=== PATIENT | female | born 2000 | race Two or more races ===

== ENCOUNTER 2024-11-23 08:03 | Emergency (ER) | payer OTHER, SELFPAY ==
[2024-11-23 08:10] VITALS: BP 136/89; PULSE 79; RESP 18; TEMP 37.4; O2SAT 99; BMI 21.5
--- NOTE | 2024-11-23 08:29 | ED.BACK ---
HPI - Back Pain/Injury General Time Seen by Provider: 08:30 Date Seen: 11/23/24 Chief Complaint: Back Injury/Pain Stated Complaint: back pain Time Seen by Provider: 11/23/24 08:29 Source: patient and RN notes reviewed Mode of arrival: ambulatory Limitations: no limitations History of Present Illness HPI Narrative: Donnie is a very pleasant 24-year-old female currently visiting from [facility] who comes to the emergency room with low back pain and feet tingling after a fall yesterday. Patient is typically healthy. She notes rollerblading yesterday and while hanging on to somebody's hands suddenly slipped falling on to her buttocks and low back. She had immediate pain. Yesterday and overnight she tried to limit activity. She did try to use ice as well. Her concern was that she had tingling in both of her feet that occurred twice. It is not present at this time. She has increasing pain today especially low back with radiation into both buttocks. She has no pain in her legs at this time. She denies hitting her head or any other injury. No loss of bowel or bladder control or numbness of the perineal area. Patient notes normal. On October 24. She has been sexually active but always with protection. She notes that she her breasts are sore and feels like she will be getting her period soon. She usually gets her menses every 35-40 days. Related Data Home Medications ?Medication ?Instructions ?Recorded ?Confirmed No Known Home Medications 11/23/24 11/23/24 Allergies Allergy/AdvReac Type Severity Reaction Status Date / Time No Known Drug Allergies Allergy Verified 11/23/24 08:17 Review of Systems Status of ROS: Reports: 6 or more systems reviewed and unremarkable except as noted in History and below Eyes: Denies: change in vision ENMT: Denies: neck pain Cardio: Denies: swelling of feet/ankles or lightheadedness Musculo: Reports: back pain and other (Tingling of the bottoms of the feet); Denies: neck pain, extremity pain or joint swelling Neuro: Denies: headache PFSH PFSH Social History Smoking Status: Never smoker How often do you have a drink containing alcohol: never AUDIT-C Alcohol total score: 0 Non-prescribed substance use: denies use Exam Narrative: Exam Narrative: Patient is very pleasant well-spoken female in no acute distress. External ears eyes nose clear. Head is atraumatic. Heart with regular rate and rhythm lungs are clear. Palpation down lumbar spine shows tenderness at L4 and 5. No ecchymosis is noted. Examination of the lower extremity shows full strength and motor as well as sensation at the ankles and toes. DTR 2+ on the right and 1+ on the left. Const: Vital Signs, click to edit/add: Vital Signs - 24 hr 11/23/24 08:10 Temperature 99.3 F Pulse Rate [Right Pulse Oximeter] 79 Respiratory Rate 18 Blood Pressure [Ri ght Upper Arm] 136/89 Pulse Oximetry 99 Oxygen Delivery Me thod Room Air Documenting provider has reviewed patient's vital signs: yes Course Course ED Course: Differential diagnosis includes but is not limited to lumbar compression fracture, sacral fracture, radiculopathy, soft tissue injury. At this time I do suggest CT of the lumbar spine given patient's sensation of tingling in the feet that has now occurred twice. I do not think we would be able to adequately rule out a fracture with plain x-ray. I do not have the ability to do MRI today. Will also give patient 400 mg of ibuprofen while she is waiting. She is in agreement with this. Vital Signs Vital signs: Initial Vital Signs Temperature 99.3 F 11/23/24 08:10 Temperature Source Temporal Artery Scan 11/23/24 08:10 Pulse Rate 79 11/23/24 08:10 Pulse Rhythm Regular 11/23/24 08:10 Pulse Strength 3+ Normal 11/23/24 08:10 Respiratory Rate 18 11/23/24 08:10 Blood Pressure 136/89 11/23/24 08:10 Blood Pressure Mean 104 11/23/24 08:10 Blood Pressure Position Sitting 11/23/24 08:10 Pulse Oximetry 99 11/23/24 08:10 Oxygen Delivery Method Room Air 11/23/24 08:10 Vital Signs Temperature 99.3 F 11/23/24 08:10 Pulse Rate 79 11/23/24 08:10 Respiratory Rate 18 11/23/24 08:10 Blood Pressure 136/89 11/23/24 08:10 Pulse Oximetry 99 11/23/24 08:10 Oxygen Delivery Method Room Air 11/23/24 08:10 Temperature 99.3 F 11/23/24 08:10 Pulse Rate 79 11/23/24 08:10 Respiratory Rate 18 11/23/24 08:10 Blood Pressure 136/89 11/23/24 08:10 Pulse Oximetry 99 11/23/24 08:10 Oxygen Delivery Method Room Air 11/23/24 08:10 Medications Administered Medications: Discontinued Medications Generic Name Dose Route Start Last Admin Trade Name Finn PRN Reason Stop Dose Admin Ibuprofen 400 mg 11/23/24 08:39 11/23/24 08:46 Ibuprofen 200 Mg Tablet PO 11/23/24 08:40 400 mg ONCE ONE Administration MDM - Back Pain/Injury MDM Narrative Medical decision making narrative: 1. Low back pain-secondary to trauma with a fall. Fortunately no evidence of bony abnormality on CT. At this time I do not detect any focal neurological deficits. No lower extremity symptoms at this time, loss of bowel or bladder control or perineal numbness. Would recommend continuing icing of the low back. May alternate ibuprofen and Tylenol every 4 hours as needed for discomfort. Recommend light activity and prolonged periods of lying in bed. If symptoms worsen especially lower extremity symptoms recommend returning to the ER for further evaluation, MRI for determination of disc and nerve root integrity. 2. Disposition-home at this time. Return for worsening symptoms and as needed. Prior to discharge patient did have a question regarding at Medicaid. She is visiting and is on a visitors to be set. She does not have insurance. Would recommend calling the phone number listed as I am unable to answer her question regarding Medicaid eligibility. She does agree with this. Lab Data Attestation: I reviewed the patient's lab results. Labs: Lab Results 11/23/24 Range/Units 08:50 Urine HCG, Qual Negative (Negative) Imaging Data CT scan - pelvis: Attestation: I have reviewed the pertinent imaging results. My impression: I do not note any acute fractures. Radiologist's impression: Bones: Alignment is normal. No sign of acute fracture. No suspicious bony lesions. Joints: Unremarkable. Soft tissues: Unremarkable. IMPRESSION: No acute or significant findings. Lumbar CT: Attestation: I have reviewed the pertinent imaging results. My impression: I do not note any acute fractures Radiologist's impression: Vertebrae: Alignment is normal. There are no fractures or suspicious bony lesions. Discs and facet joints: Disc spaces and facets are within normal limits. Extraspinal findings: Prevertebral soft tissues and visualized retroperitoneum are unremarkable. IMPRESSION: No acute fracture or traumatic subluxation. Discharge Plan Discharge Clinical Impression: Low back pain Qualifiers: Chronicity: acute Back pain laterality: bilateral Sciatica presence: without sciatica Qualified Code(s): M54.50 - Low back pain, unspecified Patient Disposition: Home, Self-Care Condition: Unchanged Additional Instructions: Recommend alternating ibuprofen (400 mg) and acetaminophen also known as Tylenol 1000 mg every 4 hours as needed for discomfort. Recommend continuing icing as needed. For worsening pain you may need MRI to take a closer look at the discs and nervous but at this time there is no evidence of fracture on the CT. Return for numbness in the genital area, loss of bowel or bladder control, worsening pain and as needed. Prescriptions: No Action No Known Home Medications Follow Up/Referrals: Provider,Not a Local [Primary Care Provider, Family Practice] Stand Alone Forms: [facility] Info Instructions
--- NOTE | 2024-11-23 08:39 | CRLHL7_ITS ---
For Patients: As a result of the Cures Act, medical imaging exams and procedure reports are released immediately into your electronic medical record. You may view this report before your referring provider. If you have questions, please contact your health care provider. INDICATION: Fall TECHNIQUE: CT pelvis without contrast. COMPARISON: None FINDINGS: Bones: Alignment is normal. No sign of acute fracture. No suspicious bony lesions. Joints: Unremarkable. Soft tissues: Unremarkable. IMPRESSION: No acute or significant findings. Please note that all CT scans at this facility use dose modulation, iterative reconstruction, and/or weight-based dosing when appropriate to reduce radiation dose to as low as reasonably achievable. Dictated by Elizabet Suh MD @ 11/23/2024 9:13:52 AM (Electronically Signed)
--- NOTE | 2024-11-23 08:39 | CRLHL7_ITS ---
For Patients: As a result of the Century Cures Act, medical imaging exams and procedure reports are released immediately into your electronic medical record. You may view this report before your referring provider. If you have questions, please contact your health care provider. INDICATION: . TECHNIQUE: CT lumbar spine without contrast. COMPARISON: None. FINDINGS: Vertebrae: Alignment is normal. There are no fractures or suspicious bony lesions. Discs and facet joints: Disc spaces and facets are within normal limits. Extraspinal findings: Prevertebral soft tissues and visualized retroperitoneum are unremarkable. IMPRESSION: No acute fracture or traumatic subluxation. Please note that all CT scans at this facility use dose modulation, iterative reconstruction, and/or weight-based dosing when appropriate to reduce radiation dose to as low as reasonably achievable. Dictated by Elizabet Suh MD @ 11/23/2024 9:06:26 AM (Electronically Signed)
[2024-11-23] MEDS: IBUPROFEN 200 MG TABLET 400 MG PO (08:46)
[2024-11-23 08:56] LABS: Ur HCG Qualitative* Negative (Negative)
== END 2024-11-23 09:49 | disposition home or self-care (01) ==
PROVIDERS: Emergency Provider Family Medicine
DX: M54.50 Low back pain, unspecified (principal)
CPT/HCPCS: 72131; 72192; 81025; 99284; A9270